=== PATIENT | male | born 1985 | race Caucasian/White ===

== ENCOUNTER 2018-03-15 17:44 | Emergency (ER) | payer OTHER ==
[2018-03-15] MEDS ORDERED: LET GEL TOPICAL 1 EA SYR TP ONE (18:09)
[2018-03-15] MEDS ORDERED: TDAP ADULT 0.5 ML INJ (BOOSTRIX) IM ONE (18:09)
[2018-03-15] MEDS ORDERED: OXYCODONE/APAP 5/325 TAB PO ONE ×2 (18:09→19:12)
--- NOTE | 2018-03-15 18:09 | EDPHY ---
General Time Seen by Provider: 03/15/18 18:02 Narrative: CHIEF COMPLAINT: Dog bite to right hand HISTORY OF PRESENT ILLNESS: Patient complains of dog bite to right hand 20-30 minutes prior to arrival. He says he was walking towards his car when a dog on a leash bit him. He reports the dog bit him on the right hand. He says that the person with the dog's and allegedly ran away. He got his friend's car drove here. He has severe pain in the right hand primarily over the palm with some over the dorsum of the hand as well. No numbness or tingling. The pain is 10/10 when he moves his fingers or hand. It is 8 or 9/10 at rest. No radiating pain. No injury elsewhere. He does not know when his last Tdap was administered. No injury elsewhere. No other associated complaints or modifying factors. TIME OF INJURY: 20-30 minutes prior to arrival TETANUS STATUS: Uncertain MEDICAL/SURGICAL/SOCIAL HISTORY: Uncomplicated medical history. No tobacco use. Occasional marijuana alcohol use. REVIEW OF SYSTEMS: Ten systems reviewed and are negative unless otherwise noted in the HPI EXAMINATION General Appearance: Alert, no distress Head: normocephalic, atraumatic Cardiovascular: Symmetric radial pulses 2+. Brisk cap refill in the fingers of the right hand. Neurological: A&O, sensory symmetric, interossei strength symmetric Skin: Warm and dry, no rash. There is a 4 cm laceration on the palm of the right hand just medial to the thenar eminence. There is subcutaneous fat extruding. No pulsatile bleeding. There are several puncture calderon the dorsum of the right hand overlying the metacarpals. No bleeding or obvious foreign bodies from these. Neurovascular intact distally. Extremities: Significant tenderness of the palm and dorsum of the right hand. There is no tenderness of the fingers or thumb. Range of motion of the right hand is intact and symmetric to the left but with significant pain. DIFFERENTIAL DIAGNOSES: Including but not limited to dog bite, puncture, metacarpal fracture MDM: 6:10 p.m. Apparent dog bite to right hand with palmar laceration and dorsal puncture calderon. Let will be applied as he will not tolerate lidocaine injections at this time. I have also ordered oral pain medication x-ray of the hand. We will update his Tdap. Plan for copious irrigation of the hand and empiric antibiotic prophylaxis. 6:20 p.m. I reviewed the plain film. I do not appreciate any findings 7:10 p.m. Patient's let has been applied for 30 min and I have now administered lidocaine. We will proceed with irrigation and loose closure. X-ray has been read as negative by radiologist. 7:45 p.m. I have re-evaluated the wound and loosely approximated the wound borders. There is 2 cm of open laceration to allow for delayed closure. He has been treated with 1st dose of Augmentin and copiously irrigated. He is neurovascular intact distally. He will be placed in a splint to immobilize. He informs me that he would like to proceed to a different emergency department in 3 days as he lives closer to [place]. He has instructions to follow up there or here in 72 hr for re-evaluation and possible delayed closure. His tetanus has been updated here. 8:15 p.m. Patient has also been evaluated by Dr. Moody. PROCEDURE: Laceration repair Consent: Verbal Location: Right palm of hand, medial to thenar eminence Length of repair: 4 cm Complexity: Complex Layer involvement: Single Anesthesia: local. 0.5% Marcaine, 7 mL Irrigation: Extensive Debridement: None Procedure description: Following good anesthesia, the wound was copiously irrigated. Wound bed was explored with a sterile glove, and there is no foreign body noted. There was subcutaneous fat extruding that was replaced. Wound borders were approximated well with good hemostasis. Tolerated well without complication. Suture/Staple material: 3 simple interrupted sutures with loose closure Wound care: Routine as discussed. Return in 72 hr for re-evaluation and possible delayed closure Suture/Staple removal: 10 days SUPERVISION: Patient was evaluated and examined in conjunction with my secondary supervising physician as documented. We have both examined the patient. ED Precautions: Worsening pain. Erythema, edema, cyanosis, pallor, paresthesia or anesthesia. - Diagnostics Imaging Results: Imaging Impressions Hand X-Ray 03/15/18 18:09 Impression: Negative for fracture or radiopaque foreign body. - History Smoking Status: Current some day smoker - Objective Vital Signs: Initial Vital Signs Temperature (C) 97.7 F 03/15/18 17:52 Heart Rate 61 03/15/18 17:52 Respiratory Rate 18 03/15/18 17:52 Blood Pressure 190/104 H 03/15/18 17:52 O2 Sat (%) 98 03/15/18 17:52 O2 Delivery Mode Room Air Allergies/Adverse Reactions: No Known Allergies Allergy (Unverified 03/15/18 17:52) Home Medications: Medication Instructions Recorded Amoxicillin/Clavulanate Pot 875 mg PO BID #19 tab 03/15/18 [Augmentin 875 MG TAB (*)] oxyCODONE HCL/ACETAMINOPHEN 1 each PO Q4-6PRN PRN #9 tablet 03/15/18 [Percocet 5-325 mg Tablet] Medications Given: Discontinued Medications Amoxicillin/Clavulanate Potassium (Augmentin 875mg) 875 mg PO EDNOW ONE PRN Reason: Protocol Stop: 03/15/18 18:19 Last Admin: 03/15/18 18:25 Dose: 875 mg Diphtheria/Tetanus/Acell Pertussis (Boostrix) 0.5 ml IM .ONCE ONE Stop: 03/15/18 18:10 Last Admin: 03/15/18 18:21 Dose: 0.5 ml Oxycodone/Acetaminophen (Percocet 5/325) 2 tab PO EDNOW ONE Stop: 03/15/18 18:10 Last Admin: 03/15/18 18:20 Dose: 2 tab Oxycodone/Acetaminophen (Percocet 5/325mg Prepack#4) 1 btl TAKEHOME EDNOW ONE Stop: 03/15/18 19:13 Last Admin: 03/15/18 19:16 Dose: 1 btl Oxycodone/Acetaminophen (Percocet 5/325) 1 tab PO EDNOW ONE Stop: 03/15/18 19:13 Last Admin: 03/15/18 19:56 Dose: Not Given Tetracaine/Epinephrine/Lidocaine (Let Gel Topical) 1 ea TP EDNOW ONE Stop: 03/15/18 18:10 Last Admin: 03/15/18 18:20 Dose: 1 ea Departure - Departure Disposition: Home, Routine, Self-Care Clinical Impression: Dog bite of right hand Qualifiers: Encounter type: initial encounter Qualified Code(s): S61.451A - Open bite of right hand, initial encounter Condition: Good Instructions: Oxycodone/Acetaminophen (By mouth), Animal Bite (ED), Laceration Without Closure (ED) Additional Instructions: 1. Keep your splint in place at all times until he return to the emergency department 2. Augmentin as prescribed to completion 3. Return to emergency department in 72 hr for re-evaluation of the wound and for possible delayed closure 4. Pain medication as prescribed as needed Referrals: Aurea Marti MD [Medical Doctor] - As per Instructions Physician,Emergency DeptMD [Medical Doctor] - As per Instructions (3 days for wound check and possible delayed closure) Prescriptions: Amoxicillin/Clavulanate Pot [Augmentin 875 MG TAB (*)] 875 mg PO BID #19 tab oxyCODONE HCL/ACETAMINOPHEN [Percocet 5-325 mg Tablet] 1 each PO Q4-6PRN PRN #9 tablet PRN Reason: Pain, Breakthrough
[2018-03-15] MEDS ORDERED: AMOXICILLIN/CLAVULANATE POT 875/125 MG TAB PO ONE (18:18)
[2018-03-15] MEDS ORDERED: OXYCODONE/APAP 5/325MG PREPACK#4 BTL TAKEHOME ONE (19:12)
[2018-03-15 20:56] VITALS: BP 189/113
== END 2018-03-15 20:55 | disposition home or self-care (01) ==
PROC: 0HQFXZZ Repair Right Hand Skin, External Approach (ICD-10-PCS; principal; 2018-03-15)
DX: S61.451A Open bite of right hand, initial encounter (principal); F17.200 Nicotine dependence, unspecified, uncomplicated; Z23 Encounter for immunization; W54.0XXA Bitten by dog, initial encounter; Y99.8 Other external cause status; Y93.01 Activity, walking, marching and hiking

== ENCOUNTER 2018-03-18 17:25 | Emergency (ER) | payer OTHER ==
[2018-03-18] MEDS ORDERED: LET GEL TOPICAL 1 EA SYR TP ONE (17:27)
--- NOTE | 2018-03-18 19:14 | EDPHY ---
General Time Seen by Provider: 03/18/18 17:49 Narrative: CHIEF COMPLAINT: Laceration on 03/15 HISTORY OF PRESENT ILLNESS: Patient presents for possible delayed closure and wound re-evaluation. He was here on March 15 for dog bite to the right hand. I evaluated this patient. He had laceration on the palm of the hand was irrigated and loosely approximated. He was treated with antibiotics and instructed to return in 72 hr for recheck and possible delayed closure. He has no fever. His pain is improved. Swelling is persistent but mildly improved. No numbness, tingling or weakness. No other associated complaints or modifying factors. TIME OF INJURY: 72 hr ago TETANUS STATUS: Updated at 1st exam MEDICAL/SURGICAL/SOCIAL HISTORY: Uncomplicated history. REVIEW OF SYSTEMS: Ten systems reviewed and are negative unless otherwise noted in the HPI EXAMINATION General Appearance: Alert, no distress Head: normocephalic, atraumatic Cardiovascular: Radial pulses symmetric 2+ brisk cap refill the fingers right hand Neurological: A&O, sensory symmetric, interossei strength symmetric Skin: Warm and dry, no rash. There is a jagged laceration the palm hand just medial to the thenar eminence. This is loosely approximated with no signs of dehiscence or purulence. There is no surrounding erythema. The wound is moist. Neuro intact distally. Extremities: Tenderness in the area of the right palm laceration. There is full range of motion of the fingers of the right hand including flexion extension. I do not appreciate any evidence of septic joint or cellulitis of the hand. DIFFERENTIAL DIAGNOSES: Including but not limited to delayed closure evaluation, dog bite, palmar laceration MDM: 5:50 p.m. Return for delayed closure of right hand laceration. I evaluated this patient 3 days ago for the same complaint. At that time he was irrigated copiously and loosely approximated for delayed closure due to the dog bite nature of the injury. He returns today having taking the antibiotic as prescribed with no complaints. His pain is improved. Swelling is better. No new complaints. 7:00 p.m. Delayed closure of a palmar laceration that I evaluated 3 days ago. The patient 's laceration was somewhat wet but did not show any signs of infection or abscess. The wound was anesthetize, re-irrigated and then closed without difficulty. We discussed keeping the wound dry with posterior splint this time. We discussed no bacitracin. We discussed continuation of his Augmentin from the dog bite. He says that the pharmacy that he went to did not give him enough, thus I provided a 2nd prescription. Short course of pain medication administered as this does appear to be very painful wound. I would like the wound to be re-evaluated in 48 hr. I would like him to return here for any signs of infection, bleeding or dehiscence. Also provided the hand surgeon on- call as this is a complicated laceration. He is comfortable this plan and discharged home stable condition. PROCEDURE: Laceration repair, delayed closure Consent: Verbal Location: Palm of right hand Length of repair: 4 cm Complexity: Jagged and complex Layer involvement: Single Anesthesia: Local. 0.5% Marcaine, 7 mL Irrigation: Extensive Debridement: None Procedure description: Following good anesthesia, the wound was copiously irrigated. Wound bed was explored with a sterile glove, and there is no foreign body noted. No apparent injury to the underlying muscular or vascular structures. No tendinous injuries parent. Wound borders were approximated well with good hemostasis. Tolerated well without complication. Suture/Staple material: 5-0 Ethilon, 8 simple interrupted sutures Wound care: Routine as discussed Suture/Staple removal: 10 Days SUPERVISION: This patient was independently evaluated without direct involvement of or examination by the attending physician. ED Precautions: Worsening pain. Erythema, edema, cyanosis, pallor, paresthesia or anesthesia. - History Smoking Status: Current some day smoker - Objective Vital Signs: Initial Vital Signs Temperature (C) 98.1 F 03/18/18 17:29 Heart Rate 71 03/18/18 17:29 Respiratory Rate 18 03/18/18 17:29 Blood Pressure 177/104 H 03/18/18 17:29 O2 Sat (%) 94 03/18/18 17:29 O2 Delivery Mode Room Air Allergies/Adverse Reactions: No Known Allergies Allergy (Unverified 03/15/18 17:52) Home Medications: Medication Instructions Recorded Amoxicillin/Clavulanate Pot 875 mg PO BID #19 tab 03/15/18 [Augmentin 875 MG TAB (*)] oxyCODONE HCL/ACETAMINOPHEN 1 each PO Q4-6PRN PRN #9 tablet 03/15/18 [Percocet 5-325 mg Tablet] Amoxicillin/Clavulanate Pot 875 mg PO BID #14 tab 03/18/18 [Augmentin 875 MG TAB (*)] Naproxen [Naprosyn] 500 mg PO BID #20 tablet 03/18/18 oxyCODONE HCL/ACETAMINOPHEN 1 each PO Q4-6PRN PRN #5 tablet 03/18/18 [Percocet 5-325 mg Tablet] Medications Given: Discontinued Medications Tetracaine/Epinephrine/Lidocaine (Let Gel Topical) 1 ea TP EDNOW ONE Stop: 03/18/18 17:28 Last Admin: 03/18/18 17:39 Dose: 1 ea Departure - Departure Disposition: Home, Routine, Self-Care Clinical Impression: Hand laceration Qualifiers: Encounter type: initial encounter Foreign body presence: without foreign body Laterality: right Qualified Code(s): S61.411A - Laceration without foreign body of right hand, initial encounter Condition: Good Instructions: Care For Your Stitches (ED), Laceration (ED) Additional Instructions: 1. Keep the wound clean, dry and covered. 2. Minimal weight-bearing to the hand while the stitches are in place 3. Contact hand surgeon for outpatient follow-up 4. Return here in 10 days for suture removal 5. Antibiotic treatment to completion for 10 day total therapy 6. ED precautions as discussed Referrals: Alpesh Jones MD [Medical Doctor] - As per Instructions Physician,Emergency DeptMD [Medical Doctor] - As per Instructions (10 days for suture removal) Stand Alone Forms: Work Limited Duty, Work Excuse Prescriptions: Amoxicillin/Clavulanate Pot [Augmentin 875 MG TAB (*)] 875 mg PO BID #14 tab Naproxen [Naprosyn] 500 mg PO BID #20 tablet oxyCODONE HCL/ACETAMINOPHEN [Percocet 5-325 mg Tablet] 1 each PO Q4-6PRN PRN #5 tablet PRN Reason: Pain, Breakthrough
[2018-03-18 19:38] VITALS: BP 160/96
== END 2018-03-18 19:38 | disposition home or self-care (01) ==
PROC: 0HQFXZZ Repair Right Hand Skin, External Approach (ICD-10-PCS; principal; 2018-03-18)
DX: S61.411D Laceration without foreign body of right hand, subsequent encounter (principal); F17.200 Nicotine dependence, unspecified, uncomplicated; W54.0XXD Bitten by dog, subsequent encounter